=== PATIENT | male | born 1990 | race Caucasian/White ===

== ENCOUNTER 2019-02-15 09:42 | Emergency (ER) | payer OTHER ==
[~2019-02-15] VITALS: Ht 165.1 cm; Wt 107.5 kg
[2019-02-15 09:42] VITALS: BP 157/95
[2019-02-15] MEDS ORDERED: CLINDAMYCIN HC300 MG PO (11:42)
[2019-02-15] MEDS ORDERED: MOBIC15 MG PO (11:44)
== END 2019-02-15 12:00 | disposition home or self-care (01) ==
LOC: ER 09:42
DX: J02.0 Streptococcal pharyngitis (principal)